=== PATIENT | female | born 1945 | race Caucasian/White ===

== ENCOUNTER → 2017-01-13 | Outpatient (CLI) | payer OTHER ==
[~2017-01-13] MED LIST: ALPR-475 PO; AMLO10TA2 PO; ASPI-496 PO; ATOR10TA PO; BISA10SU65 PR; CELE200C PO; CYCL5TAB PO; DOCU-30 PO; ENOX40SY4 SQ; FLUO40CA9 PO; HYDR1TAB12 PO; INSU100V5 SQ-INSULIN; LISI1TAB5 PO; MAG30ORA PO; METF500T4 PO; POLY17PO5 PO; SENN1TAB7 PO; TRAM-28 PO
== END | disposition home or self-care (01) ==
LOC: CFH 09:40
PROVIDERS: ATTEND Genetic Counselor, MS
DX: Z12.31 Encounter for screening mammogram for malignant neoplasm of breast (principal); M85.88 Other specified disorders of bone density and structure, other site
CPT/HCPCS: 77080; G0202

== ENCOUNTER 2018-01-02 13:16 | Emergency (ER) | payer OTHER ==
[~2018-01-02] VITALS: Ht 167.6 cm; Wt 90.5 kg
[~2018-01-02 13:16] MED LIST changes: +DOCU-131 PO; -DOCU-30 PO; -METF500T4 PO; +METF500T5 PO; -TRAM-28 PO; +TRAM-47 PO
[2018-01-02 13:18] VITALS: BP 136/79
[2018-01-02 13:45] LABS: BASOPHILS # (AUTO) 0.01 x10^3/uL (0-0.1); BASOPHILS % (AUTO) 0 % (0-1); EOSINOPHILS # (AUTO) 0.23 x10^3/uL (0-0.4); EOSINOPHILS % (AUTO) 4 % (1-7); LYMPHOCYTES # (AUTO) 1.43 x10^3/uL (1-3.4); LYMPHOCYTES % (AUTO) 26 % (22-44); MD NO; MEAN CORPUSCULAR HEMOGLOBIN 28.4 pg (27.0-34.8); MEAN CORPUSCULAR HGB CONC 33.1 g/dL (32.4-35.8); MEAN CORPUSCULAR VOLUME 85.6 fL (80-100); MEAN PLATELET VOLUME 6.8 fL (7.4-10.4); MONOCYTES # (AUTO) 0.45 x10^3/uL (0.2-0.8); MONOCYTES % (AUTO) 8 % (2-9); NEUTROPHILS # (AUTO) 3.48 x10^3/uL (1.8-6.8); NEUTROPHILS % (AUTO) 62 % (42-75); PLATELET COUNT 282 x10^3/uL (130-400); RED BLOOD COUNT 4.87 x10^6/uL (3.82-5.3); RED CELL DISTRIBUTION WIDTH 13.9 % (9.6-15.2)
[2018-01-02 13:54] LABS: ALBUMIN 3.7 g/dL (3.4-5.0); ANION GAP 5 mmol/L (5-15); CALCIUM 9.6 mg/dL (8.5-10.1); CHLORIDE 105 mmol/L (98-107); CREATININE 0.84 mg/dL (0.55-1.02)
== END 2018-01-02 14:33 | disposition home or self-care (01) ==
LOC: ED 14:27
DX: J06.9 Acute upper respiratory infection, unspecified (principal); I10 Essential (primary) hypertension; E11.9 Type 2 diabetes mellitus without complications; Z87.891 Personal history of nicotine dependence
CPT/HCPCS: 36415; 80048; 82040; 85025; 93005; 99285

== ENCOUNTER → 2018-07-24 | Outpatient (CLI) | payer MEDICARE ==
[~2018-07-24] MED LIST changes: -AMLO10TA2 PO; +AMLO10TA8 PO; +METF500T17 PO; -METF500T5 PO; -SENN1TAB7 PO; +SENN1TAB8 PO
== END | disposition home or self-care (01) ==
LOC: WOUND 14:46
PROVIDERS: ATTEND Internal Medicine
DX: E11.622 Type 2 diabetes mellitus with other skin ulcer (principal); L97.222 Non-pressure chronic ulcer of left calf with fat layer exposed; I10 Essential (primary) hypertension; F32.9 Major depressive disorder, single episode, unspecified; E66.9 Obesity, unspecified; Z68.34 Body mass index [BMI] 34.0-34.9, adult; Z87.891 Personal history of nicotine dependence; Z86.14 Personal history of Methicillin resistant Staphylococcus aureus infection
CPT/HCPCS: 97597; 99215